=== PATIENT | female | born 1950 | race Caucasian/White ===

== ENCOUNTER → 2017-01-10 | Outpatient (CLI) | payer MEDICARE, BC ==
[~2017-01-10] MED LIST: LISI-360 PO; METF500 PO; METO50TA PO; MYCO500T PO; ROBA750T3 PO
--- NOTE | 2017-01-17 08:33 | RSPPFT ---
DATE OF PROCEDURE: 01/10/17 COMMENTS: The forced vital capacity, FEV1, FEV1/FVC ratio are normal. There is a small decrease in the FEF 25-75 with mild improvement after bronchodilator. The total lung capacity is slightly reduced with a normal residual volume and a normal RV/TLC ratio. 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 The diffusion capacity, when corrected, is normal.
== END ==
LOC: HRSP 12:08
PROVIDERS: ATTEND Allergy & Immunology
DX: M34.9 Systemic sclerosis, unspecified (principal)
CPT/HCPCS: 94060; 94726; 94729